=== PATIENT | female | born 1970 | race Caucasian/White ===

== ENCOUNTER 2020-08-30 17:16 | Emergency (ER) | payer BC, OTHER ==
[2020-08-30 17:38] VITALS: RESP 16; TEMP 97.9
--- NOTE | 2020-08-30 17:41 | ED ---
Upper Extremity HPI - General Chief Complaint: Extremity Injury, Upper Stated Complaint: fall/arm injury Time Seen by Provider: 08/30/20 17:40 Source: patient Mode of arrival: ambulatory Limitations: no limitations - History of Present Illness Initial Comments: Patient is a 50-year-old female presenting to the emergency department the chief complaint of wrist pain. Patient states she injured her left wrist and went to an urgent care. Patient states they gave her 60 mg of Toradol which improved her pain. They also obtained an x-ray which revealed a fracture with some displacement advised to come to emergency department for evaluation. She denies any numbness or tingling is still able to move her fingers. Patient states her pain is under control and does not want anymore. Patient came in with a short arm splint already in place. - Related Data Allergies Allergy/AdvReac Type Severity Reaction Status Date / Time No Known Allergies Allergy Verified 08/30/20 17:37 Review of Systems ROS Statement: Those systems with pertinent positive or pertinent negative responses have been documented in the HPI. ROS Other: All systems not noted in ROS Statement are negative. Past Medical History Past Medical History: No Reported History History of Any Multi-Drug Resistant Organisms: None Reported Past Surgical History: No Surgical Hx Reported Past Psychological History: No Psychological Hx Reported Smoking Status: Never smoker Past Alcohol Use History: Occasional Past Drug Use History: None Reported General Exam Limitations: no limitations General appearance: alert, in no apparent distress Head exam: Present: atraumatic, normocephalic, normal inspection Eye exam: Present: normal appearance, PERRL, EOMI Pupils: Present: normal accommodation ENT exam: Present: normal exam, normal oropharynx, mucous membranes moist, TM's normal bilaterally, normal external ear exam Neck exam: Present: normal inspection, full ROM. Absent: tenderness Respiratory exam: Present: normal lung sounds bilaterally. Absent: respiratory distress, wheezes, rales Cardiovascular Exam: Present: regular rate, normal rhythm, normal heart sounds Extremities exam: Present: tenderness (Localized tenderness to the left wrist), normal capillary refill, joint swelling (Left wrist), other (+2 ulnar and radial pulses bilateral. Sensation intact to proprioception and pain in the left upper she may.). Absent: normal inspection (Obvious bony deformity noted on the left wrist. Small region of ecchymosis 2.), full ROM (Limited range of motion of the left wrist due to pain.), pedal edema, calf tenderness Back exam: Present: normal inspection, full ROM. Absent: tenderness, CVA tenderness (R), CVA tenderness (L) Neurological exam: Present: alert, oriented X3 Psychiatric exam: Present: normal affect, normal mood Skin exam: Present: warm, dry, intact, normal color Course Vital Signs 08/30/20 17:33 Temperature 97.9 F Pulse Rate 68 Respiratory 16 Rate Blood Pressure 146/93 O2 Sat by Pulse 100 Oximetry Procedures - Nerve Block Consent Obtained: verbal consent Local Anesthetic Used: Lidocaine 1% Amount of anesthesia used: 10 Side: left Nerve Blocks: hematoma block Procedure Successful: Yes Complications: none Patient Tolerated Procedure: well, no complications - Orthopedic Fracture Reduction Fracture #1 Consent Obtained: verbal consent Side: left Fracture Reduction Location: radius (Distal radius left) Analgesia: hematoma block Technique: direct manipulation Post Reduction X-rays Demonstrate: acceptable reduction Post-Reduction Neuro Exam: intact Post-Reduction Vascular Exam: intact Splint Applied: Yes (Volar) Patient Tolerated Procedure: well - Orthopedic Splinting/Casting Injury #1 Side: left Upper Extremity Immobilizer: volar splint, Vijay wrap, synthetic pre-padded splint Medical Decision Making - Medical Decision Making Patient is a 50-year-old female presenting to emergency department with left wrist pain. On physical examination, there appears to be a bony deformity at the left wrist. X-ray reveals an impacted and displaced distal radial fracture. Patient was offered analgesia, she declined. Hematoma block was successfully performed. Reduction performed on the spot and volar splint was applied. Patient was advised to follow with orthopedics. She is otherwise neurovascularly intact in the left upper extremity. She will be discharged with Tylenol [address] or operate heavy machinery when taking the medication. Return parameters were thoroughly discussed the patient was understanding and agreeable. Case discussed with physician. Disposition Clinical Impression: Distal radius fracture, left, Left wrist injury Disposition: HOME SELF-CARE Condition: Stable Instructions (If sedation given, give patient instructions): Wrist Fracture in Adults (ED) Additional Instructions: Follow-up with pediatric sports medicine specialist. Do not drive or operate heavy machinery when taking Tylenol 3. Keep the arm elevated and alternate between Tylenol and Motrin for pain control. Return to emergency department if symptoms worsen. Is patient prescribed a controlled substance at d/c from ED?: No Referrals: None,Stated [Primary Care Provider] - 1-2 days Dwayne Mckeon DO [Doctor of Osteopathic Medicine] - 1-2 days Time of Disposition: 19:38
[2020-08-30] MEDS ORDERED: LIDOCAINE 1% INJ 10MG/ML (20 ML MDV) SQ ONE (18:32)
--- NOTE | 2020-08-30 19:00 | XR ---
EXAMINATION TYPE: XR forearm LT DATE OF EXAM: 08/30/2020 COMPARISON: NONE HISTORY: Wrist pain TECHNIQUE: 2 views FINDINGS: There is impacted transverse fracture of the distal radius 1.5 cm from the wrist joint. The re is anterior angulation. There is 1 cm posterior displacement on the lateral view. There is intact carpal bones. Carpal bones are not well visualized. Elbow joint appears anatomic. IMPRESSION: Impacted displaced fracture of the distal radius.
--- NOTE | 2020-08-30 19:02 | XR ---
EXAMINATION TYPE: XR wrist complete LT DATE OF EXAM: 08/30/2020 COMPARISON: NONE HISTORY: Wrist pain TECHNIQUE: 2 views FINDINGS: There is impacted transverse fracture of the distal radial metaphysis 1.5 cm from the wrist joint. There is fracture ulnar styloid process. There is anterior mild angulation at the radius frac ture site. There is 1 cm posterior displacement of the distal fragments. There is comminution. There is no dislocation at the wrist joint. There is some deformity at the scaphoid trapezium joint which c ould relate to an old injury. Scaphoid is intact. IMPRESSION: Impacted displaced fracture distal radius. Nondisplaced ulnar styloid process fracture.
[2020-08-30] MEDS ORDERED: ACET/COD 300 MG/30 MG STARTER PACK 6 TAB BTL PO STA (19:39)
--- NOTE | 2020-08-30 19:49 | XR ---
EXAMINATION TYPE: XR wrist limited LT DATE OF EXAM: 08/30/2020 COMPARISON: NONE HISTORY: Post reduction TECHNIQUE: 2 views FINDINGS: There is impacted transverse fracture distal radius. There is improved position of the frag ments compared to recent exam. IMPRESSION: Improved position of the radius fracture. There is 5 mm posterior displacement of the distal major fr agment. Nondisplaced ulnar styloid process fracture unchanged.
[2020-08-30 19:52] VITALS: BP 156/91; PULSE 72
== END 2020-08-30 19:55 | disposition home or self-care (01) ==
LOC: EC 17:16
DX: S52.592A Other fractures of lower end of left radius, initial encounter for closed fracture (principal); X58.XXXA Exposure to other specified factors, initial encounter
CPT/HCPCS: 73090; 73100; 73110; 99283; 25605; J2001